=== PATIENT | female | born 1995 | race Caucasian/White ===

== ENCOUNTER 2017-03-15 00:36 | Inpatient (IN) | payer BC, OTHER ==
[~2017-03-15] VITALS: Ht 167.6 cm; Wt 102.0 kg
[~2017-03-15 00:36] MED LIST: ERRIN0.35 MG PO; IBUPROFEN800 MG PO; INDOMETHACIN50 MG PO; LAMOTRIGINE100 MG PO; NAPROSYN500 MG PO; OMEPRAZOLE20 MG PO; PEPCID20 MG PO; PRENATA CHEWAB1 EACH PO; TRAMADOL HCL50 MG PO
[2017-03-15] MEDS ORDERED: VITAFOL-OB+DHA1 EACH PO (01:15)
[2017-03-15] MEDS ORDERED: LAMICTAL150 MG PO (01:15)
--- NOTE | 2017-03-15 10:56 | PR ---
[facility] [address] [place], [place] [address] Signed Progress Notes IP Datetime Report Generated by CPN: 03/15/2017 10:56 PROGRESS NOTES: [id number] Impression: Normal progression of labor Procedures: Epidural Placement Plan: Continue present management Informed Consent Obtain: Vaginal Delivery; Risks, Benefits and Alternatives Discussed VITAL SIGNS: [id number] Vital Signs: Reviewed EXAM: [id number] Dilatation: 4.5 Effacement: 80 Station: -2 Uterine Contractions: every one to four minutes MEMBRANES: [id number] Nitrazine: Positive Membrane Status: Ruptured Amniotic Fluid Color: Clear Comments: patient is comfortable and sleeping with epidural in place Fetus A: [id number] FHR Baseline: 130's Variability: Moderate 6-25bpm Accelerations: 15X15 Decelerations: Variable FHR Category: Category I Presentation: Vertex Comments on Fetus A: reactive Fetus B: [id number] Signing Physician: Rosa Holley MD CC: *Electronically Signed* 03/15/17 1056 ROSA HOLLEY MD PATIENT NAME: ANA BONILLAFlora KEVIN PROGRESS NOTE DATE OF : [birth year] PHYSICIAN: ROSA HOLLEY MD RPT #: [id number] REPORT IS CONFIDENTIAL AND NOT TO BE RELEASED WITHOUT AUTHORIZATION
--- NOTE | 2017-03-15 13:48 | PR ---
[facility] [facility] [address] [facility] [place] [place] [address] Signed Progress Notes IP Datetime Report Generated by CPN: 03/15/2017 13:48 PROGRESS NOTES: [id number] Impression: Normal progression of labor Procedures: Intrauterine Pressure Catheter; Scalp Electrode; Sterile Vag Exam Plan: Continue present management; Augmentation Informed Consent Obtain: Vaginal Delivery; Risks, Benefits and Alternatives Discussed VITAL SIGNS: [id number] Vital Signs: Reviewed EXAM: [id number] Dilatation: 6.0 Effacement: 80 Station: -2 Uterine Contractions: every one to four minutes MEMBRANES: [id number] Nitrazine: Positive Membrane Status: Ruptured Amniotic Fluid Color: Clear Comments: patient is progressing. Good variability. Internals placed. Fetus A: [id number] FHR Baseline: 130''s Variability: Moderate 6-25bpm Accelerations: 15X15 Decelerations: Early; Variable FHR Category: Category I Presentation: Vertex Comments on Fetus A: reactive. Having earlies and variables, occasional lates Fetus B: [id number] Signing Physician: Rosa Holley MD CC: *Electronically Signed* 03/15/17 1348 ROSA HOLLEY MD PATIENT NAME: CHIARA BONILLA PROGRESS NOTE DATE OF : [birth year] PHYSICIAN: ROSA HOLLEY MD RPT #: [id number] REPORT IS CONFIDENTIAL AND NOT TO BE RELEASED WITHOUT AUTHORIZATION
--- NOTE | 2017-03-15 15:24 | PR ---
[facility] [address] [place], [place] [address] Signed Progress Notes IP Datetime Report Generated by CPN: 03/15/2017 15:24 PROGRESS NOTES: [id number] Impression: Slow Progression of Labor Procedures: Intrauterine Pressure Catheter; Scalp Electrode; Sterile Vag Exam Other Procedures: epidural rebolused. Plan: Continue present management; Augmentation Informed Consent Obtain: Vaginal Delivery; Risks, Benefits and Alternatives Discussed VITAL SIGNS: [id number] Vital Signs: Reviewed EXAM: [id number] Dilatation: 8.0 Effacement: 100 Station: 0 Uterine Contractions: every one to two minutes MEMBRANES: [id number] Nitrazine: Positive Membrane Status: Ruptured Amniotic Fluid Color: Clear Comments: changing patient's position, intrauterine resusitation for decels - responding terbutaline given, 02 on, iv fluid going Fetus A: [id number] FHR Baseline: 120's Variability: Moderate 6-25bpm Accelerations: 15X15 Decelerations: Prolonged FHR Category: Category II Presentation: Vertex Comments on Fetus A: good variability Fetus B: [id number] Signing Physician: Rosa Holley MD CC: *Electronically Signed* 03/15/17 1524 ROSA HOLLEY MD PATIENT NAME: CHIARA BONILLA PROGRESS NOTE DATE OF : [birth year] PHYSICIAN: ROSA HOLLEY MD RPT #: [id number] REPORT IS CONFIDENTIAL AND NOT TO BE RELEASED WITHOUT AUTHORIZATION
--- NOTE | 2017-03-17 09:57 | PR ---
[facility] [address] [facility] [place], [place] [address] Signed PP Progress Notes Datetime Report Generated by CPN: 03/17/2017 09:56 SUBJECTIVE: [id number] Pain: Within normal limits Nausea/Vomiting: Denies Flatus: Yes Bowel Movement: Yes Vital Signs: [id number] Vital Signs: Reviewed EXAM: [id number] Cardiovascular: Normal Respiratory: Normal Abdomen/Uterus: Normal Lochia: Normal Vulva/Perineum: Normal Breasts: Normal CVA Tenderness: Normal Extremities: Normal Incision: Not Applicable Progress: Normal IMPRESSION/PLAN/PROCEDURES: [id number] Impression: Normal progression Plan: Discharge Procedures: None Progress Notes: patient doing well. is going better. Wanting to go home. Signing Physician: Rosa Holley MD CC: *Electronically Signed* 03/17/17 0956 ROSA HOLLEY MD PATIENT NAME: CHIARA BONILLA PROGRESS NOTE DATE OF : [birth year] PHYSICIAN: ROSA HOLLEY MD RPT #: [id number] REPORT IS CONFIDENTIAL AND NOT TO BE RELEASED WITHOUT AUTHORIZATION
== END 2017-03-17 11:35 | disposition home or self-care (01) | DRG 775 ==
LOC: FBC 00:36
PROVIDERS: ADMIT Obstetrics & Gynecology
PROC: 10E0XZZ Delivery of Products of Conception, External Approach (ICD-10-PCS; principal; 2017-03-15)
PROC: 0KQM0ZZ Repair Perineum Muscle, Open Approach (ICD-10-PCS; 2017-03-15)
PROC: 10907ZC Drainage of Amniotic Fluid, Therapeutic from Products of Conception, Via Natural or Artificial Opening (ICD-10-PCS; 2017-03-15)
PROC: 3E0S3BZ Introduction of Anesthetic Agent into Epidural Space, Percutaneous Approach (ICD-10-PCS; 2017-03-15)
PROC: 00HU33Z Insertion of Infusion Device into Spinal Canal, Percutaneous Approach (ICD-10-PCS; 2017-03-15)
PROC: 3E0234Z Introduction of Serum, Toxoid and Vaccine into Muscle, Percutaneous Approach (ICD-10-PCS; 2017-03-16)
DX: O48.0 Post-term pregnancy (principal); Z3A.40 40 weeks gestation of pregnancy; Z37.0 Single live birth; O70.1 Second degree perineal laceration during delivery; Z23 Encounter for immunization
CPT/HCPCS: 01960; 36415; 82803; 83030; 85027; 86850; 86900; 86901; 90715; 99406; J2590; J2790; J3010; J3105; J7120

== ENCOUNTER 2019-10-11 14:06 | Emergency (ER) | payer BC, OTHER ==
[~2019-10-11] VITALS: Ht 165.1 cm; Wt 101.6 kg
[~2019-10-11 14:06] MED LIST changes: +LAMICTAL150 MG PO; +VITAFOL-OB+DHA1 EACH PO
[2019-10-11] MEDS ORDERED: LAMICTAL150 MG PO (14:23)
[2019-10-11] MEDS ORDERED: MECLIZINE HCL25 MG PO (15:13)
== END 2019-10-11 15:20 | disposition home or self-care (01) ==
LOC: ED 14:06
DX: R42 Dizziness and giddiness (principal); G40.909 Epilepsy, unspecified, not intractable, without status epilepticus; F17.200 Nicotine dependence, unspecified, uncomplicated; Z71.6 Tobacco abuse counseling; Z79.899 Other long term (current) drug therapy
CPT/HCPCS: 82542; 99284; 99406

== ENCOUNTER 2024-11-08 19:31 | Emergency (ER) | payer OTHER ==
[~2024-11-08] VITALS: Ht 152.4 cm; Wt 105.7 kg
[~2024-11-08 19:31] MED LIST changes: +MECLIZINE HCL25 MG PO
[2024-11-08] MEDS ORDERED: SERTRALINE HCL25 MG PO (19:38)
[2024-11-08] MEDS ORDERED: ESTRADIOL42.5 GM VG (19:38)
[2024-11-08 19:47] LABS: BASOPHILS 0.2 % (0.1-1.2); EOSINOPHILS 1.4 % (0.7-5.8); HEMATOCRIT 40.4 % (34.1-44.9); HEMOGLOBIN 13.7 g/dL (11.2-15.7); LYMPHOCYTES 32.5 % (19.3-51.7); MCH 29.3 PG (25.6-32.2); MCHC 33.9 g/dL (32.2-35.5); MCV 86.3 fL (79.4-94.8); MONOCYTES 4.4 % (4.7-12.5); NEUTROPHILS 61.2 % (34.0-71.1); PLATELET COUNT 239 K/uL (182-369); RBC 4.68 M/uL (3.93-5.22)
[2024-11-08 20:01] LABS: ALBUMIN 3.8 g/dL (3.4-5.0); ALBUMIN/GLOBULIN RATIO 1.06 (1.1-2.4); ANION GAP 14.5 (7-21); BILIRUBIN, TOTAL 0.6 mg/dL (0.2-1.0); BUN/CREATININE RATIO 12.06 (6.0-28.6); CALCIUM 9.5 mg/dL (8.5-10.1); CREATININE, SERUM 1.16 mg/dL (0.55-1.02); MAGNESIUM 2.1 mg/dL (1.8-2.4); POTASSIUM 3.5 mmol/L (3.5-5.1); PROTEIN, TOTAL 7.4 g/dL (6.4-8.2)
[2024-11-08] MEDS ORDERED: LIDOCAINE & ANTACID 35 ML BTL PO ONE (20:15)
[2024-11-08] MEDS ORDERED: LORazepam 2 MG/ML VIAL IV ONE (20:15)
[2024-11-08] MEDS ORDERED: LORazepam 1 MG HOME.PACK PO ONE (20:45)
[2024-11-08 20:50] VITALS: BP 187/113
--- NOTE | 2024-11-09 08:28 | EKG ---
[facility] [address] [facility] [place], [place] [address] Signed Normal sinus rhythm Normal ECG No previous ECGs available Confirmed by Praveen Mathur MD ([id number]) on 11/09/2024 8:27:56 AM Electronically Signed By: PRAVEEN MATHUR MD 11/09/24 0828 PATIENT NAME: CHIARA BARLOW Electrocardiogram DATE OF : [birth year] PHYSICIAN: PRAVEEN MATHUR MD REPORT #: [id number] REPORT IS CONFIDENTIAL AND NOT TO BE RELEASED WITHOUT AUTHORIZATION
== END 2024-11-08 20:50 | disposition home or self-care (01) ==
LOC: ED 19:31
PROVIDERS: Family Medicine
DX: I10 Essential (primary) hypertension (principal); F41.9 Anxiety disorder, unspecified; G40.909 Epilepsy, unspecified, not intractable, without status epilepticus; F17.200 Nicotine dependence, unspecified, uncomplicated
CPT/HCPCS: 36415; 71045; 80053; 83735; 84484; 85025; 96374; 99285-25; J2060